=== PATIENT | male | born 1940 | race Caucasian/White ===

== ENCOUNTER 2017-04-30 12:23 | Observation (INO) | payer MEDICARE ==
[~2017-04-30] VITALS: Ht 182.9 cm; Wt 75.0 kg
[2017-04-30] VITALS (8 sets, daily range): BP systolic 102–159; BP diastolic 62–85; PULSE 63–87; RESP 15–20; TEMP 95.7–98.5; O2SAT 95–100
[~2017-04-30 12:23] MED LIST: AMLO2.5T PO; ATOR20TA42 PO; LISI-360 PO; METO50TA PO; NAPR220T95 PO; PROS5TAB2 PO; TAMS0.4C67 PO; TIZA4CAP PO
[2017-04-30] MEDS ORDERED: AMLO2.5T PO (13:00)
[2017-04-30] MEDS ORDERED: LISI10TA3 PO (13:00)
[2017-04-30] MEDS ORDERED: TIZA4TAB PO (13:00)
[2017-04-30] MEDS ORDERED: METO50TA PO (13:00)
[2017-04-30] MEDS ORDERED: PROS5TAB PO (13:00)
[2017-04-30] MEDS ORDERED: TAMS5CAP PO (13:00)
[2017-04-30] MEDS ORDERED: LIPI40TA PO (13:00)
[2017-04-30] MEDS ORDERED: ALEV220T14 PO (13:00)
[2017-04-30 13:14] LABS: AUTOMATED NEUTROPHIL # 3.8 TH/MM3 (1.8-7.7); BASOPHIL % 0.4 % (0.0-2.0); EOSINOPHIL % 0.3 % (0.0-4.0); HEMATOCRIT 38.7 % (39.0-51.0); HEMO FLAGS DIFF FINAL; LYMPH % 34.9 % (9.0-44.0); LYMPHOCYTE # 2.4 TH/MM3 (1.0-4.8); MEAN CELL VOLUME 93.5 FL (80.0-100.0); MEAN CORPUSCULAR HEMOGLOBIN 32.2 PG (27.0-34.0); MEAN CORPUSCULAR HGB CONC 34.4 % (32.0-36.0); MONO % 9.7 % (0.0-8.0); NEUT % 54.7 % (16.0-70.0); PLATELET COUNT 141 TH/MM3 (150-450); RED BLOOD COUNT 4.14 MIL/MM3 (4.50-5.90); RED CELL DISTRIBUTION WIDTH 13.1 % (11.6-17.2); WHITE BLOOD COUNT 6.9 TH/MM3 (4.0-11.0)
[2017-04-30] MEDS ORDERED: SODIUM CHLORIDE 0.9% FLUSH 10 ML FLUSH IVF PRN (13:15)
[2017-04-30] MEDS ORDERED: ASPIRIN 325 MG TAB PO ONE (13:15)
--- NOTE | 2017-04-30 13:18 | PD ---
HPI Chief Complaint: Chest Pain Time Seen by Provider: 12:51 Travel History International Travel<30 days: No Contact w/Intl Traveler<30days: No Traveled to known affect area: No History of Present Illness HPI Patient's 76 years old. He arrives with a retrosternal chest heaviness. It started today while he was golfing. Yesterday he spent 4 hours outside pressure washing. That's an unusually high amount of physical exertion for the patient. At the time of ER evaluation he is a very vague retrosternal chest discomfort reports quite minimal. He has no shortness of breath. In 2006 the patient underwent quintuple bypass surgery. The patient has hypertension. Patient has hyperlipidemia as well. He follows with Dr. Penaloza who performed an echocardiogram a few months ago which revealed a decrease in overall ejection fraction. PFSH Past Medical History Arthritis: Yes (NECK) Asthma: No Atrial Fibrillation: Yes (PAROXYSMAL) Blood Disorders: No Heart Rhythm Problems: Yes (AFIB) Cancer: No Cardiovascular Problems: Yes (CAD/ cabg) High Cholesterol: Yes Chest Pain: No Congestive Heart Failure: No COPD: No Cerebrovascular Accident: No Diabetes: No Diminished Hearing: No Endocrine: No Gastrointestinal Disorders: Yes (HX OF GI BLEED, HERNIA REPAIR ) GERD: No Genitourinary: Yes Headaches: No Hiatal Hernia: No Hypertension: Yes Immune Disorder: No Kidney Stones: No Medical other: Yes (HYPERCHOLESTEROLEMIA,ATROPHY MUSCLES IN UPPER ARM/SHOULDER, ) Musculoskeletal: Yes (WEAKNESS MICHELLE ARMS WEAKNESS. RT>LT. LOWER SPINE ? HERNIATED DISC) Neurologic: Yes (MULTIPLE FAINTING EPISODES) Psychiatric: No Reproductive: No Respiratory: No Migraines: No Renal Failure: No Seizures: No Sleep Apnea: No Thyroid Disease: No Ulcer: No Tetanus Vaccination: > 5 Years Influenza Vaccination: Yes Past Surgical History Abdominal Surgery: Yes (APPENDECTOMY 2006) AICD: No Appendectomy: Yes Arteriovenous Shunt: No Body Medical Devices: PLASTIC HEART VALVE. ? MONITORING DEVICE IMPLANTED UNDER LT COLLARBONE Cardiac Surgery: Yes ( CABG X5,VALVE REPLACED) Coronary Artery Bypass Graft: Yes (X 5; VALVE, 2006) Ear Surgery: No Endocrine Surgery: No Eye Surgery: No Genitourinary Surgery: No Gynecologic Surgery: No Insulin Pump: No Joint Replacement: No Oral Surgery: No Pacemaker: No Thoracic Surgery: No Other Surgery: Yes (MITRAL VALVE ANNULOPLASTY) Social History Alcohol Use: Yes (4 GLASSES OF WINE A DAY) Tobacco Use: No Substance Use: No Allergies-Medications (Allergen,Severity, Reaction): Coded Allergies: No Known Allergies (Verified , 04/30/17) Reported Meds & Prescriptions Reported Meds & Active Scripts Active Reported Flomax (Tamsulosin HCl) 0.4 Mg Cap 0.4 Mg PO HS Tizanidine (Tizanidine HCl) 4 Mg Tab 4 Mg PO TID Aleve Arthritis (Naproxen Sodium) 220 Mg Tab 220 Mg PO BID Metoprolol Tartrate 50 Mg Tab 50 Mg PO BID Lisinopril 10 Mg Tab 10 Mg PO DAILY Proscar (Finasteride) 5 Mg Tab 5 Mg PO DAILY Do not crush. Lipitor (Atorvastatin Calcium) 40 Mg Tab 40 Mg PO HS Amlodipine (Amlodipine Besylate) 2.5 Mg Tab 2.5 Mg PO DAILY Review of Systems Except as stated in HPI: all other systems reviewed are Neg Physical Exam Narrative GENERAL: 76 yo M, WNWD, NAD SKIN: Warm and dry. HEAD: Atraumatic. Normocephalic. EYES: Pupils equal and round. No scleral icterus. No injection or drainage. ENT: No nasal bleeding or discharge. Mucous membranes pink and moist. NECK: Trachea midline. No JVD. CARDIOVASCULAR: Regular rate. Regular rhythm. RESPIRATORY: No accessory muscle use. Clear to auscultation. Breath sounds equal bilaterally. GASTROINTESTINAL: Abdomen soft, non-tender, nondistended. Hepatic and splenic margins not palpable. MUSCULOSKELETAL: Extremities without clubbing, cyanosis, or edema. No obvious deformities. NEUROLOGICAL: Awake and alert. No obvious cranial nerve deficits. Motor grossly within normal limits. Five out of 5 muscle strength in the arms and legs. Normal speech. PSYCHIATRIC: Appropriate mood and affect; insight and judgment normal. Data Data Last Documented VS Vital Signs Date Time Temp Pulse Resp B/P Pulse Ox O2 Delivery O2 Flow Rate FiO2 04/30/17 14:38 68 16 142/78 98 Room Air 04/30/17 12:52 98.5 VS reviewed Orders Electrocardiogram (04/30/17 13:02) Basic Metabolic Panel (Bmp) (04/30/17 13:02) Ckmb (Isoenzyme) Profile (04/30/17 13:02) Complete Blood Count With Diff (04/30/17 13:02) Magnesium (Mg) (04/30/17 13:02) Prothrombin Time / Inr (Pt) (04/30/17 13:02) Act Partial Throm Time (Ptt) (04/30/17 13:02) Troponin I (04/30/17 13:02) Chest, Single Ap (04/30/17 13:02) Ecg Monitoring (04/30/17 13:02) Bilateral Bp Monitoring (04/30/17 13:02) Iv Access Insert/Monitor (04/30/17 13:02) Oximetry (04/30/17 13:02) Oxygen Administration (04/30/17 13:02) Aspirin (Aspirin) (04/30/17 13:15) Sodium Chloride 0.9% Flush (Ns Flush) (04/30/17 13:15) CKMB (04/30/17 13:05) CKMB% (04/30/17 13:05) Consult Cardiology (04/30/17 ) Admit Order (Ed Use Only) (04/30/17 14:37) Labs Laboratory Tests Test 04/30/17 13:05 White Blood Count 6.9 TH/MM3 Red Blood Count 4.14 MIL/MM3 Hemoglobin 13.3 GM/DL Hematocrit 38.7 % Mean Corpuscular Volume 93.5 FL Mean Corpuscular Hemoglobin 32.2 PG Mean Corpuscular Hemoglobin 34.4 % Concent Red Cell Distribution Width 13.1 % Platelet Count 141 TH/MM3 Mean Platelet Volume 9.0 FL Neutrophils (%) (Auto) 54.7 % Lymphocytes (%) (Auto) 34.9 % Monocytes (%) (Auto) 9.7 % Eosinophils (%) (Auto) 0.3 % Basophils (%) (Auto) 0.4 % Neutrophils # (Auto) 3.8 TH/MM3 Lymphocytes # (Auto) 2.4 TH/MM3 Monocytes # (Auto) 0.7 TH/MM3 Eosinophils # (Auto) 0.0 TH/MM3 Basophils # (Auto) 0.0 TH/MM3 CBC Comment DIFF FINAL Differential Comment Prothrombin Time 10.7 SEC Prothromb Time International 1.0 RATIO Ratio Activated Partial 28.0 SEC Thromboplast Time Sodium Level 140 MEQ/L Potassium Level 4.6 MEQ/L Chloride Level 102 MEQ/L Carbon Dioxide Level 28.5 MEQ/L Anion Gap 10 MEQ/L Blood Urea Nitrogen 35 MG/DL Creatinine 1.50 MG/DL Estimat Glomerular Filtration 46 ML/MIN Rate Random Glucose 93 MG/DL Calcium Level 9.9 MG/DL Magnesium Level 2.0 MG/DL Total Creatine Kinase 339 U/L Creatine Kinase MB 5.6 NG/ML Creatine Kinase MB % 1.7 % Troponin I LESS THAN 0.02 NG/ML MDM Medical Decision Making Medical Screen Exam Complete: Yes Emergency Medical Condition: Yes Medical Record Reviewed: Yes Differential Diagnosis NSTEMI, unstable angina, coronary vasospasm, PE, PTX, aortic dissection, pericarditis, myocarditis, endocarditis, PNA, esophageal disease, aneurysm, musculoskeletal etiologies, anxiety, cocaine/sympathomimetic abuse Narrative Course EKG reveals a sinus rhythm with a rate of 63 and a left bundle branch block type pattern generally unchanged and gross morphology in comparison to 2013 Last 24 hours Impressions Chest X-Ray 04/30/17 1302 Signed Impressions: Service Date/Time: , April 30, 2017 13:14 - CONCLUSION: 1. Post surgical changes. No acute cardiopulmonary findings. Raji Franco MD CBC & BMP Diagram 04/30/17 13:05 Troponin less than 0.02 Case was discussed with Dr. Webb who requests hospitalist admission with a consult to Dr. Penaloza. Case d/w Dr Salguero who requests admission under Dr Olson. Patient agreeable with plan for admission. Diagnosis Primary Impression: Chest pain Qualified Code: R07.9 - Chest pain, unspecified type Admitting Information Admitting Physician Requests: Observation Raji Adams MD Apr 30, 2017 13:18 Raji Adams MD Apr 30, 2017 13:18
[2017-04-30 13:23] LABS: CHLORIDE 102 MEQ/L (98-107); POTASSIUM 4.6 MEQ/L (3.5-5.1); SODIUM (NA) 140 MEQ/L (136-145)
[2017-04-30 13:27] LABS: ANION GAP 10 MEQ/L (5-15); BICARBONATE 28.5 MEQ/L (21.0-32.0); BLOOD UREA NITROGEN 35 MG/DL (7-18)
[2017-04-30 13:30] LABS: GLOMERULAR FILTRATION RATE 46 ML/MIN (>89)
[2017-04-30 13:31] LABS: PROTHROMBIN TIME - PATIENT 10.7 SEC (9.8-11.6)
[2017-04-30 13:33] LABS: CREATINE KINASE 339 U/L (39-308)
[2017-04-30 13:46] LABS: CKMB 5.6 NG/ML (0.5-3.6)
--- NOTE | 2017-04-30 13:57 | RADRPT ---
EXAM DATE/TIME: 04/30/2017 13:14 [facility] COMPARISON: CHEST SINGLE AP, December 19, 2011, 10:58. INDICATIONS : Chest tightness, short of breath, dizziness. MEDICAL HISTORY : Cardiovascular disease. SURGICAL HISTORY : CABG. ENCOUNTER: Initial ACUITY: 1 day PAIN SCORE: 1/10 LOCATION: Bilateral chest FINDINGS: The patient is post median sternotomy and valvular replacement. The heart is at the upper limits of n ormal in size. The lungs are clear. There degenerative changes in the shoulders bilaterally. The study is relatively unchanged compared to previous dated 12/19/11. CONCLUSION: 1. Post surgical changes. No acute cardiopulmonary findings. Rjai Franco MD on April 30, 2017 at 13:55 Board Certified Radiologist. This report was verified electronically.
[2017-04-30] MEDS ORDERED: SODIUM CHLORID 0.9% 500 ML INJ 500 ML IV ONE (15:15)
[2017-04-30] MEDS ORDERED: BISACODYL 10 MG SUPP RECTAL PRN (17:00)
[2017-04-30] MEDS ORDERED: NALOXONE HCL 0.4 MG/ML AMP IV PRN (17:00)
[2017-04-30] MEDS ORDERED: SENNOSIDES 8.6 MG TAB PO PRN (17:00)
[2017-04-30] MEDS ORDERED: SODIUM CHLORIDE 0.9% FLUSH 10 ML FLUSH IV FLUSH PRN (17:00)
[2017-04-30] MEDS ORDERED: ONDANSETRON HCL 4 MG/2 ML VIAL IVP PRN (17:00)
[2017-04-30] MEDS ORDERED: LACTULOSE SYRUP 20 GM/30 ML CUP PO PRN (17:00)
[2017-04-30] MEDS ORDERED: ACETAMINOPHEN/HYDROcodone 325 MG/5 MG TAB PO PRN (17:00)
[2017-04-30] MEDS ORDERED: MAGNESIUM HYDROXIDE SUSP 30 ML CUP PO PRN (17:00)
[2017-04-30] MEDS ORDERED: PILL SPLITTER OTHER PRN (17:00)
[2017-04-30 17:29] LABS: CREATINE KINASE 289 U/L (39-308)
[2017-04-30] MEDS: HEPARIN SODIUM - SQ 10,000 UNITS/ML VIAL SQ SCH (18:33)
[2017-04-30] MEDS: METOPROLOL TARTRATE 50 MG TAB PO SCH (20:50)
[2017-04-30] MEDS: DOCUSATE SODIUM 50 MG/SENNA 8.6 MG TAB PO SCH (20:50)
[2017-04-30] MEDS: SODIUM CHLORIDE 0.9% FLUSH 10 ML FLUSH IV FLUSH SCH (21:00)
[2017-04-30] MEDS ORDERED: ATORVASTATIN 40 MG TAB PO SCH (21:00)
[2017-04-30] MEDS ORDERED: TAMSULOSIN HCL 0.4 MG CAP PO SCH (21:00)
[2017-05-01] MEDS ORDERED: cloNIDine HCL 0.1 MG TAB PO PRN (03:00)
[2017-05-01] MEDS: HEPARIN SODIUM - SQ 10,000 UNITS/ML VIAL SQ SCH ×2 (05:37→18:00)
[2017-05-01 08:00] VITALS: BP 152/83; PULSE 56; RESP 16; TEMP 97.2; O2SAT 100
[2017-05-01] MEDS ORDERED: amLODIPine BESYLATE 5 MG TAB PO SCH (09:00)
[2017-05-01] MEDS ORDERED: LISINOPRIL 10 MG TAB PO SCH (09:00)
[2017-05-01] MEDS ORDERED: FINASTERIDE 5 MG TAB PO SCH (09:00)
[2017-05-01] MEDS: SODIUM CHLORIDE 0.9% FLUSH 10 ML FLUSH IV FLUSH SCH (09:00)
[2017-05-01] MEDS: METOPROLOL TARTRATE 50 MG TAB PO SCH (09:32)
[2017-05-01] MEDS: DOCUSATE SODIUM 50 MG/SENNA 8.6 MG TAB PO SCH (09:32)
[2017-05-01 12:00] VITALS: BP 118/70; PULSE 52; RESP 18; TEMP 97; O2SAT 99
[2017-05-01 16:00] VITALS: BP 148/78; PULSE 54; RESP 18; TEMP 97.6; O2SAT 99
--- NOTE | 2017-05-01 17:56 | MH ---
cc: KERRI PRICE MD DATE OF ADMISSION 04/30/2017 CHIEF COMPLAINT Chest pain. HISTORY OF PRESENT ILLNESS This is a 76-year-old male with a past medical-surgical history significant for atrial fibrillation, history of arthritis, history of coronary artery disease status post CABG five-vessel, hyperlipidemia, history of GI bleed in the past and hernia repair, history of atrophy of the muscles in the upper arm and shoulder, history of appendectomy, history of ? monitoring device implanted under the left collarbone and a valve placement, appendectomy, valve surgery done in 2006. Complaining of chest pain which is retrosternal heaviness and started yesterday while he was golfing and has spent 4-hour outside he usually has a amount of physical exertion and at the time of the ER evaluation he ____ retrosternal chest discomfort and quite minimal and had no shortness of breath. In 2006 he had five-vessel bypass surgery. He sees Dr. Penaloza as an outpatient which he had an echo done a few months ago which revealed a decrease in overall ejection fraction, other than that nothing significant. When I examined the patient the patient denies any chest pain and the patient also refusing blood draw. The risk, benefit, alternatives explained to the patient including . He verbalized understanding and still refused it and also discussed with __ about refusal of blood draw. PAST MEDICAL-SURGICAL HISTORY As dictated above. SOCIAL HISTORY Drinks four glasses of wine on a daily basis. Denies any smoking or drug abuse. Lives at home with . He is retired [employer] worker. ALLERGIES NO KNOWN DRUG ALLERGIES. FAMILY HISTORY Significant for dad of heart attack at the age of 37. Brother of heart attack at the age of 35 and uncle also because of heart attack. MEDICATIONS Include: 1. Flomax 0.4 milligrams p.o. h.s. 2. Tizanidine 4 milligrams p.o. t.i.d. 3. Aleve arthritis 220 milligrams twice a day. 4. Metoprolol 50 milligrams twice a day. 5. Lisinopril 10 milligrams daily. 6. Proscar 5 milligrams p.o. daily. 7. Lipitor 40 milligrams p.o. at bedtime. 8. Amlodipine 2.5 milligrams p.o. daily. REVIEW OF SYSTEMS All review of systems are negative at the time of examination. PHYSICAL EXAMINATION GENERAL: This is a 76-year-old male sitting on the bed, not in any acute distress. VITAL SIGNS: Temperature 97.0, heart rate 52, respirations 18, blood pressure 118/70, O2 saturation 99% at room air. HEENT: Normocephalic, atraumatic. EOMI. PERRL. Oral mucosa moist. NECK: Supple. No visible thyromegaly or neck mass. Trachea central. CVS: Regular rate and rhythm. LUNGS: Respirations clear to auscultation bilaterally. ABDOMEN: Soft, nontender. Bowel sounds audible. EXTREMITIES: No cyanosis or clubbing. Full range of motion of all extremities. NEURO: Awake, alert, oriented x4. No focal deficits. SKIN: Warm and dry. PSYCH: The patient is cooperative. Mood, affect are normal. LABORATORY DATA Include CBC totally unremarkable except for RBC count 4.14 low, hemoglobin 13.3, hematocrit 38.7 low. BMP totally unremarkable except for BUN 35 high, creatinine 1.50 high, creatine 339 high, CPK MB 5.6. Troponin-I less than 0.02 x2. PT 10.7, INR 1.0, APTT 28.0. IMAGING STUDIES Chest x-ray was done shows postsurgical changes. No acute cardiopulmonary finding. CARDIOLOGY STUDIES EKG done shows sinus rhythm with rate of 63, moderate interventricular conduction delay, borderline EKG. ASSESSMENT/PLAN 1. This is a 77-year-old male who came to the ER diagnosed with chest pain, rule out acute coronary syndrome. Cardiac enzymes x2 0.02. Cardiology consulted. Started on aspirin 325 milligrams p.o. daily. Further recommendation per ___. 2. History of coronary artery disease continue the home medication. Will monitor blood pressure. 3. History of BPH. Continue home medication. 4. History of hypertension. Continue home medication. Monitor blood pressure. 5. History of paroxysmal atrial fibrillation. Continue home medications. 6. History of hyperlipidemia. Continue Lipitor 40 milligrams p.o. daily. 7. DVT prophylaxis, heparin 5000 units subcutaneous twice a day. 8. GI prophylaxis, Protonix 40 milligrams p.o. daily. 9. We are going to manage the patient on a daily basis and make recommendations on a daily basis. MD NORMAN Arrington /5:22 PM /5:40 PM
[2017-05-01] MEDS ORDERED: PANTOPRAZOLE SOD 40 MG DELAYED RELEASE TAB PO SCH (18:00)
--- NOTE | 2017-05-01 20:53 | MB ---
cc: SHANELL CARO M.D. DATE OF CONSULTATION 05/01/17 HISTORY OF PRESENT ILLNESS Thank you Dr. Srinath Olson for asking us to see this very pleasant gentleman who presented yesterday with chest discomfort. He had power washed the previous day also yesterday and then also played golf and then had some very mild chest tightness and also dizziness. He had a bypass surgery in 2004. He has had a loop recorder insertion in 2011 and removal in 2014. PAST HISTORY Positive ASHD status post bypass surgery times 5 on 07/10/2006. Mitral repaired 2005 with a [place] annuloplasty ring. He also has a history of syncope, hypertension, hyperlipidemia, pulmonary embolism, alcohol abuse in the past hernia surgery, knee surgery which is remote. SOCIAL HISTORY Nonsmoker. Moderate alcohol. No drugs. ALLERGIES None. MEDICATIONS Include: 1. Protonix. 2. Amlodipine. 3. Lisinopril. 4. Clonidine. 5. Lipitor. 6. Metoprolol. 7. Flomax. 8. Heparin subcutaneous 9. Zanaflex. 10. Naloxone. 11. Lactulose. PHYSICAL EXAMINATION GENERAL: On examination pulse 72, blood pressure 148/78, respirations 18. HEENT: Eyes showed no xanthelasma. Mouth showed no cyanosis or pallor. NECK: Showed JVD. HEART: He had two heart sounds. No murmurs. CHEST: Clear. ABDOMEN: Soft. No hepatosplenomegaly. EXTREMITIES: Legs reveal no evidence of edema. NEUROLOGIC: Examination grossly intact. LABORATORY DATA White count 6.9, hemoglobin 13.3, hematocrit 38.7, sodium 140, potassium 4.6, BUN 35, creatinine 1.5. Troponin less than 0.02 x2. CARDIOLOGY STUDIES EKG showed normal sinus rhythm. ASSESSMENT/PLAN This patient has been ruled out for myocardial infarction. Will plan to do nuclear stress test as an outpatient given his underlying coronary artery disease. At this point his chest pains appear to be possibly related to his extreme exertion, on the basis of nuclear stress test will make a decision. At this point he can be discharged. I will follow up with him next week. He is to return to the hospital if he has any further problems. Thank you Dr. Olson for asking us to see this very pleasant gentleman. VIRGINIA Martinez MD,JONN HAJ/SHELLIE /7:30 PM /8:31 PM [facility] NETWORKOmer
--- NOTE | 2017-05-02 11:14 | EKG ---
Date Performed: 04/30/2017 Time Performed: 12:28:45 PTAGE: 76 years EKG: Sinus rhythm MODERATE INTRAVENTRICULAR CONDUCTION DELAY BORDERLINE ECG INTERPRETATION BASED ON A DEFAULT AGE OF 4 0 YEARS NO PREVIOUS TRACING DOCTOR: Aaron Garcia Interpretating Date/Time 05/02/2017 11:07:05
== END 2017-05-01 19:30 | disposition home or self-care (01) ==
LOC: PHED 12:23 → PHEDA 14:38 → PH3A 16:15
PROVIDERS: ADMIT Family Medicine; ATTEND Family Medicine
DX: R07.89 Other chest pain (principal); R06.02 Shortness of breath; R42 Dizziness and giddiness; E78.00 Pure hypercholesterolemia, unspecified; I44.7 Left bundle-branch block, unspecified; I25.10 Atherosclerotic heart disease of native coronary artery without angina pectoris; I10 Essential (primary) hypertension; I48.0 Paroxysmal atrial fibrillation; E78.5 Hyperlipidemia, unspecified; N40.0 Benign prostatic hyperplasia without lower urinary tract symptoms; M19.90 Unspecified osteoarthritis, unspecified site; Z95.1 Presence of aortocoronary bypass graft; Z79.899 Other long term (current) drug therapy; Z86.711 Personal history of pulmonary embolism
CPT/HCPCS: 71010; 80048; 82550; 82552; 83735; 84484; 85025; 85610; 85730; 93005; 99285; G0378; J1644; J7040

== ENCOUNTER 2017-05-29 10:17 | Day surgery (SDC) | payer MEDICARE ==
[~2017-05-29] VITALS: Ht 182.9 cm; Wt 74.5 kg
[~2017-05-29 10:17] MED LIST changes: +ALEV220T14 PO; -ATOR20TA42 PO; +LIPI40TA PO; -LISI-360 PO; +LISI10TA3 PO; -NAPR220T95 PO; +PROS5TAB PO; -PROS5TAB2 PO; -TAMS0.4C67 PO; +TAMS5CAP PO; -TIZA4CAP PO; +TIZA4TAB PO
[2017-05-29] MEDS ORDERED: NS 1000P @30 MLS/HR (KVO) IV SCH (11:00)
[2017-05-29 11:01] VITALS: BP 193/106; PULSE 80; RESP 17; TEMP 98.3; O2SAT 100
[2017-05-29] MEDS ORDERED: GLUC500C5 PO (11:20)
[2017-05-29] MEDS ORDERED: LISI-515 PO (11:20)
[2017-05-29] MEDS ORDERED: LIPI80TA PO (11:20)
[2017-05-29] MEDS ORDERED: AMLO5TAB2 PO (11:20)
[2017-05-29] MEDS ORDERED: METO50TA PO (11:20)
[2017-05-29] MEDS ORDERED: FINA5TAB2 PO (11:20)
[2017-05-29] MEDS ORDERED: COQ-30CA2 PO (11:20)
[2017-05-29] MEDS ORDERED: OMEG100010 PO (11:20)
[2017-05-29] MEDS ORDERED: ESSE250T PO (11:20)
[2017-05-29] MEDS ORDERED: VITA100064 PO (11:20)
[2017-05-29] MEDS ORDERED: POTA595T PO (11:20)
[2017-05-29] MEDS ORDERED: ZETI10TA5 PO (11:20)
[2017-05-29] MEDS ORDERED: BETA1TAB5 PO (11:21)
[2017-05-29 11:28] LABS: AUTOMATED NEUTROPHIL # 2.2 TH/MM3 (1.8-7.7); BASOPHIL % 0.7 % (0.0-2.0); EOSINOPHIL % 0.2 % (0.0-4.0); HEMATOCRIT 39.9 % (39.0-51.0); HEMO FLAGS DIFF FINAL; LYMPH % 45.7 % (9.0-44.0); LYMPHOCYTE # 2.3 TH/MM3 (1.0-4.8); MEAN CELL VOLUME 93.5 FL (80.0-100.0); MEAN CORPUSCULAR HEMOGLOBIN 32.6 PG (27.0-34.0); MEAN CORPUSCULAR HGB CONC 34.9 % (32.0-36.0); MONO % 10.1 % (0.0-8.0); NEUT % 43.3 % (16.0-70.0); PLATELET COUNT 149 TH/MM3 (150-450); RED BLOOD COUNT 4.27 MIL/MM3 (4.50-5.90); RED CELL DISTRIBUTION WIDTH 13.6 % (11.6-17.2); WHITE BLOOD COUNT 5.1 TH/MM3 (4.0-11.0)
[2017-05-29 11:37] LABS: APTT (PATIENT) 28.2 SEC (24.3-30.1); PROTHROMBIN TIME - PATIENT 10.8 SEC (9.8-11.6)
[2017-05-29 11:45] LABS: BICARBONATE 29.5 MEQ/L (21.0-32.0); POTASSIUM 3.9 MEQ/L (3.5-5.1)
[2017-05-29] MEDS ORDERED: HEPARIN-NS/PF INJ 500 ML ONE (12:35)
[2017-05-29] MEDS ORDERED: MIDAZOLAM HCL 2 MG/2 ML VIAL ONE ×2 (12:53→13:07)
[2017-05-29] MEDS ORDERED: IOHEXOL 350 MG/ML 50 ML BTL (for Cath Lab) OTHER ONE (13:00)
[2017-05-29] MEDS ORDERED: IOHEXOL 350 MG/ML 100 ML BTL (for Cath Lab) OTHER ONE (13:00)
--- NOTE | 2017-05-29 15:52 | CATHPROC ---
[employer] HIS Report Study Information Study Number Admission Scheduled Start Study Start [id number] May 29 2017 10:17AM 05/29/2017 May 29 2017 12:19PM [place] Service Cardiac Catheterization Admit Source Facility Department Other [facility] - [facility] Physician and Clinical Staff Initial Georges Dang Burnisherstephanie King RN, Wolf BurnisherAlejandra Pedersen RN Other cathlab, cathlab Recorder Vinod Landry RCIS(BS) Scrub Nikki Alvarado,GRAPHICS EDITOR TECH2 Procedures Performed Procedure Location (Site) Vessel Name Coronary Angiograms LCA Left Coronary Coronary Angiograms RCA Right Coronary Coronary Angiograms HSU-LAD Left Coronary Coronary Angiograms SVG-DIAG Left Coronary Coronary Angiograms SVG-OM CIRC Coronary Angiograms SVG-RCA Right Coronary Equipment Time Clinical Consultant Description Size Mfg Part Number Used/Scraped [id number] 12:19 CRUZ GONSALVES SWAN DORA CATHETER FR 7 Used *[id number] TRANSDUCER, TRUWAVE [id number] 12:19 CRZU GONSALVES * Used W/STOCKCOCK *[id number] TRANSDUCER, TRUWAVE [id number] 12:19 CRUZ GONSALVES * Used W/STOCKCOCK *[id number] MPIS-502-10.0- INTRODUCER SET, 12:19 [employer] FR 5 SC-NT-U-SST Used MICROPUNCTURE, STIFFENED *[id number] 538-476 *[id number] [phone] *[id number] 538-460 *[id number] 538-420 *[id number] 538-422 *[id number] 538-442 *[id number] 538-453S *[id number] WIRE, HYDROSTEER 150CM [id number] 13:44 DAIG/ST. [employer]ES[employer] MED[employer] 150CM Used STRAIGHT GLIDE *[id number] INTRODUCER SET, 12:19 [employer] * [id number] Used MICROPUNCTURE [id number] 12:19 [employer] INDUSTRIES PACK, CCL CUSTOM * Used *[id number] 12:19 [employer] PACER PEN, SKIN DUAL W/ RULER * Used *[id number] 12:19 [employer] MEDICAL WIRE, 3MMJ .035 180CM 180CM Used *[id number] PROBE COVER, STERILE [id number] 12:19 [employer] * Used ULTRASOUND W/ GEL *[id number] [id number] 12:19 NAMIC MANIFOLD, 2 PORT * Used *[id number] 12:19 NAMIC MANIFOLD, 4 PORT * Used *[id number] 12:19 [employer] OMNIPAQUE, 350 MG, 150ML 150ML [id number] Used [id number] 12:19 [employer] BLANKET,WARM AIR CCL * Used *[id number] 12:19 TERUMO MEDICAL SHEATH, FR4 TERUMO (10CM) FR 4 Used *[id number] [id number] 12:19 [employer] MEDICAL SHEATH, FR7 TERUMO (10CM) FR 7 Used *[id number] History: Current Medications Medication Dosage/Unit Route Frequency Last Date/Time Taken Beta Bobby Statins (any) History: Allergies Allergy Reaction No Known Allergies History: Risk Factors Family History of Hypertension Dyslipidemia Previous TX Previous Heart Failure Premature CAD Yes Yes Yes No No Prior Valve Prior PCI Prior CABG Prior CABGDate Surgery No No Yes 07/10/2016 Cerebrovascular Peripheral Artery Chronic Lung On Dialysis Diabetes Disease Disease Disease No No No No No History: Symptoms/Diagnosis Selection Items Chest pain History: Stress Tests Stress or Imaging Studies Performed Yes Standard Exercise Stress Test No Stress Echo No Stress Test SPECT Stress Test SPECT Result Stress Test SPECT Ischemia Risk/Extent Yes Positive Unavailable Stress Test CMR No Cardiac CTA Coronary Calcium Score No No History: Other Disease Selection Items HTN History: TX/CV Data Previous CABG Date 07/10/2006 History: Other Current Smoker No Labs Hgb (g/dl) Hct (%) WBC (l/cumm) Platelets (thousands) 11.60-17.00 35.00-51.00 4.00-11.00 150.00-450.00 13.9 39.9 5.1 149 Glucose (mg/dl) BUN (mg/dl) Creatinine (mg/dl) BUN:Creatinine (1:x) 74.00-106.00 7.00-18.00 0.50-1.30 10.00-20.00 80 25 0.8 31.3 Na (meq/l) K (meq/l) 136.00-145.00 3.50-5.10 141 3.9 INR (PTT:PT) 0.90-1.10 1 CPK-MB (ng/ML) 0.50-3.60 Not Drawn Medication Medication Total Dose (Bolus/Oral) Medication Total Dosage/Unit 1% XYLOCAINE 20 mL FENTANYL 100 mcg VERSED 4.5 mg Medications (Bolus/Oral) Medication Time Given Dosage/Unit Administered By Reason FENTANYL 05/29/2017 1:01:54 PM 50 mcg Silvino, Alejandra 50 mcg FENTANYL given in lab by Alejandra Dubois RN in Left Antecubital via Peripheral IV. Ordered by Georges Penaloza. VERSED 05/29/2017 1:02:12 PM 2 mg Silvino, Alejandra 2 mg VERSED given in lab by Alejandra Dubois RN in Left Antecubital via Peripheral IV. Ordered by Georges Soler. VERSED 05/29/2017 1:02:45 PM 0.5 mg Marlow, Alejandra 0.5 mg VERSED given in lab by Alejandra Dubois RN in Left Antecubital via Peripheral IV. Ordered by Georges Bernal. 1% XYLOCAINE 05/29/2017 1:05:22 PM 20 mL Georges Penaloza 20 mL 1% XYLOCAINE given in lab by Georges Penaloza in Right Groin via Subcutaneous. VERSED 05/29/2017 1:16:02 PM 2 mg Marlow, Alejandra 2 mg VERSED given in lab by Alejandra Dubois RN in Left Antecubital via Peripheral IV. Ordered by Georges Soler. FENTANYL 05/29/2017 1:20:02 PM 50 mcg Silvino, Alejandra 50 mcg FENTANYL given in lab by Alejandra Dubois RN in Left Antecubital via Peripheral IV. Ordered by Georges Penaloza. Medication (Drip) Medication Time Given Dosage/Unit Concentration/Unit Diluent (ml) Solutio n IV Solutions 05/29/2017 12:32:15 PM 0 mL (IV) 500 NaCl .9 Patient arrived on IV Solutions given by cathlab, cathlab in Left Antecubital via Peripheral IV. Pump /Drip Flow = 20 ml/hr using NaCl .9. Ordered by Georges Penaloza. Initial Case Assessment Cardiovascular HR Rhythm NIBP Chest Pain 86 sinus 176/100 0 Edema Present Skin color Skin None Normal Warm Dry Circulatory - Right Pulses Dorsalis Pedis Femoral 1 3 Scale (0,1,2,3,4,d) Circulatory - Left Pulses Dorsalis Pedis Femoral 1 3 Scale (0,1,2,3,4,d) Neurological State Oriented to time-place- Alert Moves all extremities person Respiration - General Respiration Rate SpO2 (%) (B/min) 15 100 Final Case Assessment Cardiovascular HR Rhythm NIBP Chest Pain 74 sinus 137/81 0 Edema Present Skin color Skin None Normal Warm Dry Circulatory - Right Pulses Dorsalis Pedis Femoral 1 3 Scale (0,1,2,3,4,d) Circulatory - Left Pulses Dorsalis Pedis Femoral 1 3 Scale (0,1,2,3,4,d) Neurological State Oriented to time-place- Alert Moves all extremities person Respiration - General Respiration Rate SpO2 (%) (B/min) 15 100 Chronological Log Time Study Chronological Log 12:32:06 Patient arrived via Bed. 12:32:07 Patient Name, D.O.B, / Armband Verified By R.N. 12:32:08 Consent signed by the physician and the patient and verified by the [facility] staff. 12:32:08 Pre-op and post- op instructions given; patient acknowledges understanding of instructions. 12:32:08 Verbal Stimulation=2 Physical Stimulation=2 Airway=2 Respiration=2 TOTAL=8. (0=absent, 1=li mited, 2=present) 12:32:09 Presedation assessment performed by [facility] RN. 12:32:11 Immediate Presedation assesment performed by physician. 12:32:11 Patient has been NPO for More than 6Hrs. 12:32:12 Skin Breakdown- none per patient 12:32:12 Patient Warmer Placed on the Table. 12:32:13 Tony Prominences Protected 12:32:15 A # 20 IV was noted in the Antecubital (left). Grade = 0 Patient arrived on IV Solutions given by cathlab, cathlab in Left Antecubital via Peripheral IV . Pump/Drip Flow = 20 12:32:15 ml/hr using NaCl .9. Ordered by Georges Penaloza. 12:32:16 History and physical on the chart or being dictated. Vitals capture started with the following parameters, Patient=Adult, Interval=5 min, Initial Pr zemonl=047 mmHg, 12:38:26 Deflation Rate=5 mmHg, Cuff placed on Right Arm Assessment: Initial Case, HR=86 BPM, Rhythm=sinus, KWVS=432/100 mmhg, Chest Pain=0, Edema=None, Color=Normal, Skin = Warm, Dry Right Pulses: Wallace Ped=1, Femoral=3 12:40:36 Left Pulses: Wallace Ped=1, Femoral=3 Neurological: State=Alert, Ox3, ATKINS Respiration: Resp=15 B/min, QmM8=258 % Vitals capture started with the following parameters, Patient=Adult, Interval=5 min, Initial Pr lbbpwx=553 mmHg, 12:41:12 Deflation Rate=5 mmHg, Cuff placed on Right Arm 12:41:35 Reference ECG taken 12:42:29 HR=83 bpm, DQBB=003/100 mmhg, SpO2=99.0 %, Resp=20 B/min, Pain=0, Mami=10, Turcios=2 12:46:56 HR=82 bpm, OJJQ=047/96 mmhg, SpO2=99.0 %, Resp=16 B/min, Pain=0, Mami=10, Turcios=2 12:49:12 Bilateral groins prepped with 2% chlorhexidine, and with a 3 min. waiting time. 12:49:14 MD paged 12:51:57 HR=84 bpm, SPNJ=171/107 mmhg, SpO2=99.0 %, Resp=15 B/min, Pain=0, Mami=10, Turcios=2 12:54:20 Pressure channel 1 zeroed. 12:55:02 MD arrived. 12:55:57 Pressure channel 2 zeroed. 12:56:56 HR=92 bpm, RLIM=915/103 mmhg, SpO2=98.0 %, Resp=15 B/min, Pain=0, Mami=10, Turcios=2 50 mcg FENTANYL given in lab by Alejandra Dubois, RN in Left Antecubital via Peripheral IV. Orde red by Ca, 13:01:54 Humayun. 13:01:57 HR=81 bpm, DJZG=469/93 mmhg, SpO2=98.0 %, Resp=16 B/min, Pain=0, Mami=10, Turcios=2 13:02:12 2 mg VERSED given in lab by Alejandra Dubois, RN in Left Antecubital via Peripheral IV. Orde red by Georges Penaloza. 13:02:30 Contrast Scanned 13:02:31 Immediate Presedation assesment performed by physician. Time Out. Correct patient, correct procedure,correct physician, ,power injector not loaded with contrast with surgical 13:02:34 team present. Time Out Concurred by , individual staff in procedure 13:02:42 Case Start 13:02:43 Verbal Stimulation=2 Physical Stimulation=2 Airway=2 Respiration=2 TOTAL=8. (0=absent, 1=li mited, 2=present) 0.5 mg VERSED given in lab by Alejandra Dubois RN in Left Antecubital via Peripheral IV. Ordere d by Ca, 13:02:45 Humayun. 13:05:22 20 mL 1% XYLOCAINE given in lab by Georges Penaloza in Right Groin via Subcutaneous. 13:06:54 HR=82 bpm, JYSJ=445/90 mmhg, SpO2=93.0 %, Resp=17 B/min, Pain=0, Mami=10, Turcios=2 13:07:56 Access site was Right Femoral Artery. 13:08:00 A INTRODUCER SET, MICROPUNCTURE * was advanced into the Fem Art (right) using the Percutane ous technique. A SHEATH, FR4 TERUMO (10CM) FR 4 was exchanged in the Fem Art (right). This was necessary in or brody to 13:08:11 accomodate a larger catheter. 13:11:55 HR=73 bpm, IATQ=750/81 mmhg, SpO2=99.0 %, Resp=11 B/min, Pain=0, Mami=10, Turcios=2 13:13:05 Access site was Right Femoral Vein. 13:13:30 A INTRODUCER SET, MICROPUNCTURE * was advanced into the Fem Vein (right) using the Percutan eous technique. A SHEATH, FR7 TERUMO (10CM) FR 7 was exchanged in the Fem Vein (right). This was necessary in o rder to 13:13:35 accomodate a larger catheter. 13:14:12 A SWAN DORA CATHETER FR 7 was inserted via Fem Vein (right) Recorded Pressure: PCW, HR=76, Condition=Condition 1 13:15:30 (Pulmonary Capillary Wedge) PCW 9 Recorded Pressure: MPA, HR=79, Condition=Condition 1 13:15:53 (Main Pulmonary Artery) MPA 33/10/19 13:16:02 2 mg VERSED given in lab by Alejandra Dubois, MARIAM in Left Antecubital via Peripheral IV. Orde red by Georges Penaloza. Recorded Pressure: MPA, HR=76, Condition=Condition 1 13:16:20 (Main Pulmonary Artery) MPA 13:16:50 HR=75 bpm, BDZV=552/86 mmhg, SpO2=95.0 %, Resp=12 B/min, Pain=0, Mami=10, Turcios=2 Thermo CO: CO=6.6 l/m, HR=73 bpm, Condition=Condition 1. Used in calculation. 13:18:42 Equipment: Description and Size=SWAN DORA CATHETER FR 7, Type=Bath Probe, CC=0.579 Injectant: Temp=19.0 - 22.0 Celsius, Volume=10.0 ml Thermo CO: CO=7.3 l/m, HR=80 bpm, Condition=Condition 1. Used in calculation. 13:19:08 Equipment: Description and Size=SWAN DORA CATHETER FR 7, Type=Bath Probe, CC=0.579 Injectant: Temp=19.0 - 22.0 Celsius, Volume=10.0 ml Thermo CO: CO=6.0 l/m, HR=79 bpm, Condition=Condition 1. Used in calculation. 13:19:35 Equipment: Description and Size=SWAN DORA CATHETER FR 7, Type=Bath Probe, CC=0.579 Injectant: Temp=19.0 - 22.0 Celsius, Volume=10.0 ml 50 mcg FENTANYL given in lab by Alejandra Dubois, MARIAM in Left Antecubital via Peripheral IV. Orde red by Ca, 13:20:02 Georges. 13:20:51 Saturation: Site=PA (Pulmonary Artery) , O2=77.8 %, Hgb=13.9 gm/dl, Condition=Condition 1. Used in calculation. 13:21:14 Saturation: Site=Ao (Aorta) , O2=91 %, Hgb=13.9 gm/dl, Condition=Condition 1. Used in calcu lation. Recorded Pressure: RV, HR=77, Condition=Condition 1 13:21:44 (Right Ventricle) RV 31/-5/2 13:21:55 HR=75 bpm, HQUG=581/79 mmhg, SpO2=90.0 %, Resp=6 B/min, Pain=0, Mami=10, Turcios=2 Recorded Pressure: RA, HR=75, Condition=Condition 1 13:21:56 (Right Atrium) RA 3/2/0 13:22:15 Saturation: Site=RA (Right Atrium) , O2=72.7 %, Hgb=13.9 gm/dl, Condition=Condition 1. Used in calculation. 13:22:56 [place] Dora Catheter Removed A JL 4.0 INFINITI CATHETER FR 4 was advanced over a wire. OMNIPAQUE, 350 MG, 150ML 150ML was us ed for 13:23:00 injections. 13:25:14 Catheter was removed A JL 5.0 INFINITI CATHETER FR 4 was advanced over a wire. OMNIPAQUE, 350 MG, 150ML 150ML was us ed for 13:25:39 injections. 13:26:54 HR=72 bpm, ZBPH=791/86 mmhg, SpO2=94.0 %, Resp=15 B/min, Pain=0, Mami=10, Turcios=2 Recorded Pressure: Ao, HR=75, Condition=Condition 1 13:27:08 (Aorta) Ao 142/76/104 13:27:33 The LCA was injected and visualized at various angles. OMNIPAQUE, 350 MG, 150ML 150ML used . 13:28:05 Catheter was removed A 3DRC INFINITI CATHETER FR 4 was advanced over a wire. OMNIPAQUE, 350 MG, 150ML 150ML was used for 13:28:07 injections. 13:29:32 The RCA was injected and visualized at various angles. OMNIPAQUE, 350 MG, 150ML 150ML used . 13:31:20 Catheter was removed 13:31:55 HR=78 bpm, CTQS=224/87 mmhg, SpO2=92.0 %, Resp=11 B/min, Pain=0, Mami=10, Turcios=2 A MPA-2 INFINITI CATHETER FR 4 was advanced over a wire. OMNIPAQUE, 350 MG, 150ML 150ML was use d for 13:32:16 injections. 13:33:59 The SVG-RCA was injected and visualized at various angles. OMNIPAQUE, 350 MG, 150ML 150ML u sed. 13:35:24 The SVG-OM was injected and visualized at various angles. OMNIPAQUE, 350 MG, 150ML 150ML us ed. 13:36:40 The SVG-DIAG was injected and visualized at various angles. OMNIPAQUE, 350 MG, 150ML 150ML used. 13:36:56 HR=74 bpm, XMNG=984/82 mmhg, SpO2=91.0 %, Resp=11 B/min, Pain=0, Mami=10, Turcios=2 13:37:58 Catheter was removed 13:38:37 A IM INFINITI CATHETER FR 4 was advanced over a wire. OMNIPAQUE, 350 MG, 150ML 150ML was us ed for injections. 13:39:38 The HSU-LAD was injected and visualized at various angles. OMNIPAQUE, 350 MG, 150ML 150ML used. 13:40:33 Catheter was removed A AL 1 INFINITI CATHETER FR 4 was advanced over a wire. OMNIPAQUE, 350 MG, 150ML 150ML was used for 13:41:32 injections. 13:41:55 HR=74 bpm, YDUT=310/83 mmhg, SpO2=93.0 %, Resp=15 B/min, Pain=0, Mami=10, Turcios=2 13:43:02 The previous wire was exchanged for a WIRE, HYDROSTEER 150CM STRAIGHT GLIDE 150CM. 13:46:56 HR=72 bpm, JNXT=775/81 mmhg, SpO2=94.0 %, Resp=14 B/min, Pain=0, Mami=10, Turcios=2 13:47:07 Wire removed 13:47:10 Catheter was removed 13:47:13 Case End Assessment: Final Case, HR=74 BPM, Rhythm=sinus, HHRN=735/81 mmhg, Chest Pain=0, Edema=None, Color=Normal, Skin = Warm, Dry Right Pulses: Wallace Ped=1, Femoral=3 13:47:18 Left Pulses: Wallace Ped=1, Femoral=3 Neurological: State=Alert, Ox3, ATKINS Respiration: Resp=15 B/min, PoL3=322 % 13:47:30 Catheter(s) removed without difficulty 13:48:38 Arterial Sheath removed; pressure applied to access site. 13:51:55 HR=72 bpm, PGGK=334/81 mmhg, SpO2=97.0 %, Resp=13 B/min, Pain=0, Mami=10, Turcios=2 13:56:54 HR=71 bpm, WDVO=468/83 mmhg, SpO2=96.0 %, Resp=20 B/min, Pain=0, Mami=10, Turcios=2 14:01:41 Venous Sheath removed; pressure applied to access site. 14:01:55 HR=71 bpm, RTSF=292/86 mmhg, SpO2=91.0 %, Resp=13 B/min, Pain=0, Mami=10, Turcios=2 14:06:58 HR=70 bpm, MRAQ=339/77 mmhg, SpO2=93.0 %, Resp=18 B/min, Pain=0, Mami=10, Turcios=2 14:08:32 Sterile dressing applied to site 14:08:34 Vitals capture stopped. 14:08:36 Patient moved to [facility] End Study - Contrast Media Used In Study Contrast Total Opened (mL) Total Used (mL) Total Wasted (mL) Omnipaque 110 110 0 End Study - Maximum Contrast Load Max Contrast Load (mL) 465.6 End Study - Radiation Exposure Fluoro Time (minutes) 11.2 End Study - Sheaths Sheaths Pulled By Sheath Hold Time (min) Nikki Alvarado 20 End Study - Patient Disposition Complications Transferred To Interventional Outcome No [facility] Holding No attempt made
--- NOTE | 2017-05-31 18:28 | MA ---
cc: GEORGES PENALOZA M.D., JEFFREY DATE 05/29/2017 INDICATIONS 1. Severe aortic stenosis. 2. History of bypass surgery. 3. Sedation PROCEDURE Right and left heart catheterization. CONSENT Full informed consent was obtained prior to the procedure. The risks of , bleeding, myocardial infarction, perforation, aspiration, foreseen and unforeseen complications were reviewed. The patient fully appeared to understand the risks. PROCEDURE DETAILS The patient was draped and prepped in the usual manner. The right femoral artery and vein were entered using a micropuncture technique with an ultrasound. Via the 7 Gabonese sheath a full right heart catheterization was carried out including saturations and cardiac outputs. Via the 4 Gabonese sheath the left and right coronary catheters were used to intubate the left and right coronaries. Pigtail catheter was used to intubate the left ventricle. Multiple angiographic views were carried out. A multipurpose catheter and IM catheter were used to intubate the vein grafts and the left internal mammary, respectively. At the end of the procedure, all catheters and sheaths were removed. Manual pressure was applied until good hemostasis was achieved. The patient returned to recovery room in stable condition. FINDINGS HEMODYNAMIC RESULTS The wedge pressure was 12/12 with a mean of 9 and mean pulmonary artery pressure was 32/9 with a mean of 19. The RV pressure was 31 with a right ventricular pressure of 2. The right atrial pressure of 3/2 with a mean of 0. The aortic pressure was 142/76 with a mean of 104. LEFT VENTRICULOGRAM Not done as the aortic valve was not crossed because of severe aortic stenosis. A mitral valve ring was also noted. CORONARIES The left main had an ostial 75% and a distal 99%. The LAD was totally occluded. The left circumflex artery was totally occluded. The right coronary artery was heavily calcified throughout its length and totally occluded in its mid section. VEIN GRAFTS The vein graft to the right coronary was a widely patent graft with excellent anastomosis to the distal right with excellent filling retrogradely. The vein graft to the obtuse marginal branch. This is a widely patent graft with excellent anastomosis to the OM1. This retrograde filled the circumflex and the OM2 and a very small OM3. Vein graft to the diagonal branch. This is a widely patent graft with excellent anastomosis to the small to medium sized diagonal branch. HSU catheter to the LAD. This was an excellent graft with excellent anastomosis to the LAD. Aortic valve: severe by echo; The heavily calcified aortic valve was not possible to cross despite using an AL -1 catheter with a straight Glidewire. CONCLUSION Severe aortic stenosis unable to cross the aortic valve. Severe confirmed by echo. Severe [place] coronary artery disease, with 100% occluded lad, lcx and RCA. Widely patent grafts x 4. PLAN Pt has severe Aortic stenosis and patent grafts. Consider TAVR versus aortic valve replacement. Discussed in detail with patient and . They will consider the options and let me know what they wish to do and where they wish to do it. We will review in office. Georges Penaloza MD, FRCP,[facility]/KK /2:00 PM /6:04 PM [place]
== END 2017-05-29 18:30 | disposition home or self-care (01) ==
LOC: HDOC 10:17 → HDIC 10:18 → HDOC 18:30
PROVIDERS: ATTEND Internal Medicine Cardiovascular Disease
DX: I35.0 Nonrheumatic aortic (valve) stenosis (principal); I25.10 Atherosclerotic heart disease of native coronary artery without angina pectoris; I25.82 Chronic total occlusion of coronary artery; I10 Essential (primary) hypertension; E78.5 Hyperlipidemia, unspecified; N28.9 Disorder of kidney and ureter, unspecified; R55 Syncope and collapse; F10.21 Alcohol dependence, in remission; Z95.1 Presence of aortocoronary bypass graft; Z86.711 Personal history of pulmonary embolism; Z79.1 Long term (current) use of non-steroidal anti-inflammatories (NSAID); Z79.899 Other long term (current) drug therapy
CPT/HCPCS: 80048; 82810; 85025; 85610; 85730; 93457; C1769; C1893; J1644; J2250; J3010; Q9967

== ENCOUNTER 2018-02-02 07:37 | Observation (INO) | payer MEDICARE ==
[2018-02-02] VITALS (10 sets, daily range): BP systolic 139–162; BP diastolic 76–93; PULSE 58–77; RESP 16–18; TEMP 97.8–98.8; O2SAT 97–100
[~2018-02-02] VITALS: Ht 182.9 cm; Wt 75.0 kg
[~2018-02-02 07:37] MED LIST changes: -AMLO2.5T PO; +AMLO5TAB2 PO; +BETA1TAB5 PO; +COQ-30CA2 PO; +ESSE250T PO; +EZET10 PO; +FINA5TAB2 PO; +GLUC500C5 PO; -LIPI40TA PO; +LIPI80TA PO; +LISI-515 PO; -LISI10TA3 PO; +OMEG100010 PO; +POTA595T PO; -PROS5TAB PO; +VITA100064 PO
[2018-02-02] MEDS ORDERED: ASPI-516 CHEW (07:55)
--- NOTE | 2018-02-02 08:07 | PD ---
HPI Chief Complaint: Syncope/Near-Syncope Time Seen by Provider: 08:02 Travel History International Travel<30 days: No Contact w/Intl Traveler<30days: No Traveled to known affect area: No History of Present Illness HPI 77-year-old male patient with history of hypertension, CAD status post CABG, vasovagal syncope, valve replacement, presents to the ER today brought in by EMS because he had a syncopal episode at home. However, patient states he did not completely lose consciousness. He states that he thinks he got up too quickly because he was supposed to go for a workout this morning and was in a cohn, went to try to weigh himself, and went down. He denies any chest pains, shortness of breath, or any other issues. He denies feeling unwell. He denies any significant injuries. However, he states he has been having some muscle cramping in the past day. Modifying Factors: None Associated Signs & Symptoms: Syncope Risk Factors: Cardiac history PFSH Past Medical History Arthritis: Yes (NECK) Asthma: No Atrial Fibrillation: Yes (PAROXYSMAL) Blood Disorders: No Heart Rhythm Problems: Yes (AFIB) Cancer: No Cardiovascular Problems: Yes (CAD, CABGX5) High Cholesterol: Yes Chest Pain: No Congestive Heart Failure: No COPD: No Cerebrovascular Accident: No Diabetes: No Diminished Hearing: No Endocrine: No Gastrointestinal Disorders: Yes (HX OF GI BLEED, HERNIA REPAIR ) GERD: No Glaucoma: No Genitourinary: Yes Headaches: No Hepatitis: No Hiatal Hernia: No Hypertension: Yes Immune Disorder: No Kidney Stones: No Medical other: Yes (HYPERCHOLESTEROLEMIA,ATROPHY MUSCLES IN UPPER ARM/SHOULDER, ) Musculoskeletal: Yes (WEAKNESS MICHELLE ARMS WEAKNESS. RT>LT. LOWER SPINE ? HERNIATED DISC) Neurologic: Yes (MULTIPLE FAINTING EPISODES) Psychiatric: No Reproductive: No Respiratory: No Integumentary: No Migraines: No Renal Failure: No Seizures: No Sleep Apnea: No Thyroid Disease: No Ulcer: No Influenza Vaccination: Yes Past Surgical History Abdominal Surgery: Yes (APPENDECTOMY 2006) AICD: No Appendectomy: Yes Arteriovenous Shunt: No Body Medical Devices: PLASTIC HEART VALVE. ? MONITORING DEVICE IMPLANTED UNDER LT COLLARBONE Cardiac Surgery: Yes ( CABG X5,VALVE REPLACED) Coronary Artery Bypass Graft: Yes (X 5; VALVE, 2006) Ear Surgery: No Endocrine Surgery: No Eye Surgery: No Genitourinary Surgery: No Gynecologic Surgery: No Insulin Pump: No Joint Replacement: No Oral Surgery: No Pacemaker: No Thoracic Surgery: No Other Surgery: Yes (MITRAL VALVE ANNULOPLASTY, CABG) Social History Alcohol Use: Yes (4 GLASSES OF WINE A DAY) Tobacco Use: No Substance Use: No Allergies-Medications (Allergen,Severity, Reaction): Coded Allergies: No Known Allergies (Verified Adverse Reaction, Unknown, 02/02/18) Reported Meds & Prescriptions Reported Meds & Active Scripts Active Reported Aspirin 81 Mg Chew 81 Mg CHEW DAILY Vision Vitamins (Beta-Carotene(A)-Vits C,E/Mins) 1 Each Tablet 1 Mg PO DAILY [place] 3 1000 mg ([place]-3 Fatty Acids) 1 Cap Cap 1,000 Mg PO DAILY Potassium Gluconate 595 Mg Tab 595 Mg PO DAILY Glucosamine (Glucosamine Sulfate) 500 Mg Cap 500 Mg PO DAILY Coq-10 (Coenzyme Q10 (Ubidecarenone)) 30 Mg Cap 100 Mg PO DAILY Vitamin D3 (Cholecalciferol) 1,000 Unit Tab 1,000 Units PO DAILY Magnesium 250 Mg Tab 250 Mg PO DAILY Finasteride 5 Mg Tab 5 Mg PO DAILY Do not crush. Zetia (Ezetimibe) 10 Mg Tab 10 Mg PO DAILY Lipitor (Atorvastatin Calcium) 80 Mg Tab 80 Mg PO HS Lisinopril 20 Mg Tab 20 Mg PO DAILY Amlodipine (Amlodipine Besylate) 5 Mg Tab 5 Mg PO DAILY Metoprolol Tartrate 50 Mg Tab 50 Mg PO DAILY Flomax (Tamsulosin HCl) 0.4 Mg Cap 0.4 Mg PO HS Tizanidine (Tizanidine HCl) 4 Mg Tab 4 Mg PO TID Aleve Arthritis (Naproxen Sodium) 220 Mg Tab 220 Mg PO BID Review of Systems Except as stated in HPI: all other systems reviewed are Neg Physical Exam Narrative GENERAL: Well-developed elderly male patient currently in mild distress. Awake , alert, oriented 3. SKIN: Focused skin assessment warm/dry. Notable midsternal scar well-healed. HEAD: Atraumatic. Normocephalic. EYES: Pupils equal and round. No scleral icterus. No injection or drainage. ENT: No nasal bleeding or discharge. Mucous membranes pink and moist. NECK: Trachea midline. No JVD. Supple. CARDIOVASCULAR: Regular rate and rhythm. No murmur appreciated. RESPIRATORY: No accessory muscle use. Clear to auscultation. Breath sounds equal bilaterally. GASTROINTESTINAL: Abdomen soft, non-tender, nondistended. Hepatic and splenic margins not palpable. MUSCULOSKELETAL: No obvious deformities. No clubbing. No cyanosis. No edema. NEUROLOGICAL: Awake and alert. No obvious cranial nerve deficits. Motor grossly within normal limits. Normal speech. PSYCHIATRIC: Appropriate mood and affect; insight and judgment normal. Data Data Last Documented VS Vital Signs Date Time Temp Pulse Resp B/P (MAP) Pulse Ox O2 Delivery O2 Flow Rate FiO2 02/02/18 10:00 58 16 140/79 (99) 100 Room Air 02/02/18 07:45 98.2 Orders Orders Electrocardiogram (02/02/18 08:03) Complete Blood Count With Diff (02/02/18 08:03) Comprehensive Metabolic Panel (02/02/18 08:03) Magnesium (Mg) (02/02/18 08:03) Ckmb (Isoenzyme) Profile (02/02/18 08:03) Troponin I (02/02/18 08:03) Act Partial Throm Time (Ptt) (02/02/18 08:03) Prothrombin Time / Inr (Pt) (02/02/18 08:03) Urinalysis - C+S If Indicated (02/02/18 08:03) Chest, Single Ap (02/02/18 08:03) Ct Brain W/O Iv Contrast(Rout) (02/02/18 08:03) Ecg Monitoring (02/02/18 08:03) Iv Access Insert/Monitor (02/02/18 08:03) Oximetry (02/02/18 08:03) Sodium Chloride 0.9% Flush (Ns Flush) (02/02/18 08:15) Alcohol (Ethanol) (02/02/18 08:03) CKMB (02/02/18 08:15) CKMB% (02/02/18 08:15) Diet Heart Healthy (02/02/18 Lunch) Ns (Bolus) Inj (02/02/18 12:30) Labs Laboratory Tests Test 02/02/18 08:15 02/02/18 09:49 White Blood Count 4.9 TH/MM3 Red Blood Count 4.20 MIL/MM3 Hemoglobin 13.5 GM/DL Hematocrit 39.3 % Mean Corpuscular Volume 93.6 FL Mean Corpuscular Hemoglobin 32.2 PG Mean Corpuscular Hemoglobin Concent 34.4 % Red Cell Distribution Width 14.2 % Platelet Count 146 TH/MM3 Mean Platelet Volume 8.5 FL Neutrophils (%) (Auto) 47.5 % Lymphocytes (%) (Auto) 41.7 % Monocytes (%) (Auto) 9.4 % Eosinophils (%) (Auto) 0.9 % Basophils (%) (Auto) 0.5 % Neutrophils # (Auto) 2.3 TH/MM3 Lymphocytes # (Auto) 2.1 TH/MM3 Monocytes # (Auto) 0.5 TH/MM3 Eosinophils # (Auto) 0.0 TH/MM3 Basophils # (Auto) 0.0 TH/MM3 CBC Comment DIFF FINAL Differential Comment Prothrombin Time 10.1 SEC Prothromb Time International Ratio 1.0 RATIO Activated Partial Thromboplast Time 25.0 SEC Blood Urea Nitrogen 20 MG/DL Creatinine 0.97 MG/DL Random Glucose 80 MG/DL Total Protein 7.8 GM/DL Albumin 3.8 GM/DL Calcium Level 9.2 MG/DL Magnesium Level 2.0 MG/DL Alkaline Phosphatase 66 U/L Aspartate Amino Transf (AST/SGOT) 63 U/L Alanine Aminotransferase (ALT/SGPT) 41 U/L Total Bilirubin 0.8 MG/DL Sodium Level 140 MEQ/L Potassium Level 3.9 MEQ/L Chloride Level 106 MEQ/L Carbon Dioxide Level 24.0 MEQ/L Anion Gap 10 MEQ/L Estimat Glomerular Filtration Rate 75 ML/MIN Total Creatine Kinase 639 U/L Creatine Kinase MB 5.9 NG/ML Creatine Kinase MB % 0.9 % Troponin I LESS THAN 0.02 NG/ML Ethyl Alcohol Level 90 MG/DL Urine Color YELLOW Urine Turbidity CLEAR Urine pH 8.0 Urine Specific [place] 1.012 Urine Protein TRACE mg/dL Urine Glucose (UA) NEG mg/dL Urine Ketones 10 mg/dL Urine Occult Blood MOD Urine Nitrite NEG Urine Bilirubin NEG Urine Urobilinogen LESS THAN 2.0 MG/DL Urine Leukocyte Esterase NEG Urine RBC /hpf Urine WBC LESS THAN 1 /hpf Urine Squamous Epithelial Cells <1 /hpf Microscopic Urinalysis Comment CULT NOT INDICATED MDM Medical Decision Making Medical Screen Exam Complete: Yes Emergency Medical Condition: Yes Medical Record Reviewed: Yes Interpretation(s) EKG shows narrow complex bradycardia at a rate of 58 bpm. No signs of acute ST elevations or depressions. I see pacer spikes of an atrial pacer but it is unclear whether this is catching. Repeat EKG shows sinus bradycardia without artifact seen. No acute ST elevations or depression seen. Laboratory Tests Test 02/02/18 08:15 02/02/18 09:49 Red Blood Count 4.20 MIL/MM3 (4.50-5.90) Platelet Count 146 TH/MM3 (150-450) Monocytes (%) (Auto) 9.4 % (0.0-8.0) Blood Urea Nitrogen 20 MG/DL (7-18) Aspartate Amino Transf (AST/SGOT) 63 U/L (15-37) Estimat Glomerular Filtration Rate 75 ML/MIN (>89) Total Creatine Kinase 639 U/L (39-308) Creatine Kinase MB 5.9 NG/ML (0.5-3.6) Troponin I LESS THAN 0.02 NG/ML Ethyl Alcohol Level 90 MG/DL (0-5) Urine Ketones 10 mg/dL (NEG) Urine Occult Blood MOD (NEG) Last [address] 02/02/18802 Signed Impressions: Service Date/Time: Friday, February 02, 2018 08:17 - CONCLUSION: 1. 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 MRI may be warranted. 2. No intraparenchymal hemorrhage. Jeffry Herrera MD Chest X-Ray 02/02/18802 Signed Impressions: Service Date/Time: Friday, February 02, 2018 08:29 - CONCLUSION: 1. No acute abnormality or significant interval change. Shahriar Drake MD Differential Diagnosis Syncope: Dysrhythmias versus vasovagal versus dehydration versus metabolic issues Narrative Course Vital signs are stable in the ER. EKG did not show significant dysrhythmias. There was an initial artifact seen but repeat EKG did not show the same artifact. Patient does not have a pacer. Lab work was fairly unremarkable. CT the brain was negative for any signs of acute intracranial processes. Chest x-ray did not show any signs of acute pulmonary processes. Case was discussed with Dr. Penaloza, patient's svp research and strategic analysis, who states that the patient can be observed in the ER and released to follow-up closely with him in the clinic. He has history of orthostatic hypotension and syncopal episodes in the past. He did suggest that we reduce his Norvasc to 2.5 mg. However, when I got the patient up and trying to walk, he became quite dizzy and did not feel like he could walk. At this point, IV fluids were given and my plan would be to admit the patient as an observation for IV fluids and reevaluation for orthostasis and syncopal episodes. Case was discussed with Dr. Hinojosa for admission. Diagnosis Primary Impression: Syncope Admitting Information Admitting Physician Requests: Rudolph Dias MD Feb 02, 2018 08:07
[2018-02-02] MEDS ORDERED: SODIUM CHLORIDE 0.9% FLUSH 10 ML FLUSH IVF PRN (08:15)
--- NOTE | 2018-02-02 08:27 | RADRPT ---
EXAM DATE/TIME: 02/02/2018 08:17 This report includes an Addendum and supersedes previous reports for this exam. [facility] COMPARISON: No previous studies available for comparison. INDICATIONS : Syncopal episode today. RADIATION DOSE: 38.73 CTDIvol (mGy) MEDICAL HISTORY : Hypertension. Cardiovascular disease SURGICAL HISTORY : CABG Appendectomy. ENCOUNTER: Initial ACUITY: 1 day PAIN SCALE: 0/10 LOCATION: cranial TECHNIQUE: Multiple contiguous axial images were obtained of the head. Using automated exposure control and adj ustment of the mA and/or kV according to patient size, radiation dose was kept as low as reasonably a chievable to obtain optimal diagnostic quality images. DICOM format image data is available electro nically for review and comparison. FINDINGS: CEREBRUM: Encephalomalacia right frontal, left temporal and right parietal lobes. The ventricles are normal for age. No evidence of midline shift, mass lesion, hemorrhage or acute infarction. No extra-axial flu id collections are seen. POSTERIOR FOSSA: The cerebellum and brainstem are intact. The 4th ventricle is midline. The cerebellopontine angle i s unremarkable. EXTRACRANIAL: The visualized portion of the orbits is intact. SKULL: The calvaria is intact. No evidence of skull fracture. CONCLUSION: 1. 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 MRI may be warranted. 2. No intraparenchymal hemorrhage. Jeffry Herrera MD on February 02, 2018 at 8:23 Board Certified Radiologist. This report was verified electronically. ADDENDUM: Prior study now available for comparison. Encephalomalacia bifrontal biparietal lobes are s table. The area of low-density in the left temporal lobe appears new on current study. MRI recommende d. COMPARISON: CT BRAIN W/O CONTRAST, November 28, 2011, 6:19. Jeffry Herrera MD on February 04, 2018 at 13:34 Board Certified Radiologist. This report was verified electronically.
[2018-02-02 08:50] LABS: AUTOMATED NEUTROPHIL # 2.3 TH/MM3 (1.8-7.7); BASOPHIL % 0.5 % (0.0-2.0); EOSINOPHIL % 0.9 % (0.0-4.0); HEMATOCRIT 39.3 % (39.0-51.0); HEMOGLOBIN 13.5 GM/DL (13.0-17.0); LYMPH % 41.7 % (9.0-44.0); LYMPHOCYTE # 2.1 TH/MM3 (1.0-4.8); MEAN CELL VOLUME 93.6 FL (80.0-100.0); MEAN CORPUSCULAR HEMOGLOBIN 32.2 PG (27.0-34.0); MEAN CORPUSCULAR HGB CONC 34.4 % (32.0-36.0); MEAN PLATELET VOLUME 8.5 FL (7.0-11.0); MONO % 9.4 % (0.0-8.0); MONOCYTE # 0.5 TH/MM3 (0-0.9); NEUT % 47.5 % (16.0-70.0); PLATELET COUNT 146 TH/MM3 (150-450); RED CELL DISTRIBUTION WIDTH 14.2 % (11.6-17.2); WHITE BLOOD COUNT 4.9 TH/MM3 (4.0-11.0)
[2018-02-02 08:59] LABS: PROTHROMBIN TIME - PATIENT 10.1 SEC (9.8-11.6)
--- NOTE | 2018-02-02 09:07 | RADRPT ---
EXAM DATE/TIME: 02/02/2018 08:29 [facility] COMPARISON: CHEST SINGLE AP, April 30, 2017, 13:14. INDICATIONS : Shortness of breath. MEDICAL HISTORY : Hypertension. Cardiovascular disease. SURGICAL HISTORY : CABG. ENCOUNTER: Initial ACUITY: 1 day PAIN SCORE: 0/10 LOCATION: Bilateral chest FINDINGS: Stable postsurgical features of prior median sternotomy and cardiac valve replacement. No significant new focal pleural or parenchymal opacities. Cardiomediastinal contours are stable. Remainder of the exam is unchanged. CONCLUSION: 1. No acute abnormality or significant interval change. Shahriar Drake MD on February 02, 2018 at 9:05 Board Certified Radiologist. This report was verified electronically.
[2018-02-02 10:04] LABS: ALBUMIN 3.8 GM/DL (3.4-5.0); ALT (GPT) 41 U/L (12-78); AST (GOT) 63 U/L (15-37); BLOOD UREA NITROGEN 20 MG/DL (7-18); CALCIUM 9.2 MG/DL (8.5-10.1); CHLORIDE 106 MEQ/L (98-107); CREATININE 0.97 MG/DL (0.60-1.30); GLOMERULAR FILTRATION RATE 75 ML/MIN (>89); GLUCOSE,RANDOM 80 MG/DL (74-106); SODIUM (NA) 140 MEQ/L (136-145)
[2018-02-02 10:04] LABS: BILIRUBIN, URINE NEG (NEG); BLOOD, URINE MOD (NEG); GLUCOSE,URINE NEG (NEG); KETONE, URINE 10 mg/dL (NEG); NITRITE,URINE NEG (NEG); SQUAMOUS EPITHELIAL CELL URINE <1 /hpf (0-5); URINE COLOR YELLOW (YELLW/STRAW); URINE LEUKOCYTE ESTERASE NEG (NEG)
[2018-02-02 10:09] LABS: ALKALINE PHOSPHATASE 66 U/L (45-117); TOTAL BILIRUBIN ADULT 0.8 MG/DL (0.2-1.0); TOTAL PROTEIN 7.8 GM/DL (6.4-8.2); TROPONIN I LESS THAN 0.02 NG/ML (0.02-0.05)
[2018-02-02] MEDS ORDERED: SODIUM CHLORID 0.9% 500 ML INJ 500 ML IV ONE (12:30)
[2018-02-02] MEDS ORDERED: FLUMAZENIL 0.5 MG/5 ML VIAL IV PUSH PRN (13:45)
[2018-02-02] MEDS ORDERED: LORazepam 1 MG TAB PO PRN (13:45)
[2018-02-02] MEDS ORDERED: LORazepam 2 MG/ML VIAL IV PUSH PRN ×4 (13:45)
[2018-02-02] MEDS ORDERED: LORazepam 2 MG TAB PO PRN (13:45)
--- NOTE | 2018-02-02 13:53 | HHI.HP ---
[facility] Primary [facility] Physician Suman Bocanegra DO Admission Diagnosis Syncope Diagnoses: (1) Syncope Diagnosis: Principal Chief Complaint: fall Travel History International Travel<30 Days: No Contact w/Intl Traveler <30 Da: No Traveled to Known Affected Are: No History of Present Illness patient is a 77 y/o male with history of CAD- s/p CABG, hypertension and dyslipidemia with history of alcohol abuse was brought to ER after he fell at home earlier.he says that he went to bathroom today and then he felt unsteady and fell. he doesn't think that he passed out. he denies any prodromal symptoms before the fall including chest pain, sob, dizziness or nausea. he was evaluated in ED and was about to be discharged home but then he was unsteady on his feet for which he was advised to stay in the hospital. he admits to heavily drinking alcohol daily- the last drink was last night. Review of Systems Constitutional: DENIES: Fever, Weight loss, Chills, Night Sweats Eyes: DENIES: Blurred vision, Diplopia, Vision loss, Double Vision Ears, nose, mouth, throat: DENIES: Tinnitus, Vertigo, Throat pain, Epistaxis Respiratory: DENIES: Apneas, Cough, Snoring, Wheezing, Hemoptysis, Sputum production, Shortness of breath Cardiovascular: DENIES: Chest pain, Palpitations, Syncope, Dyspnea on Exertion , PND, Lower Extremity Edema, Orthopnea, Claudication Gastrointestinal: DENIES: Abdominal pain, Black stools, Bloody stools, Constipation, Diarrhea, Nausea, Vomiting, Difficulty Swallowing, Anorexia Genitourinary: DENIES: Urinary frequency, Urgency, Hematuria, Dysuria Musculoskeletal: DENIES: Joint pain, Muscle aches, Stiffness, Joint Swelling Integumentary: DENIES: Rash Neurologic: COMPLAINS OF: Poor Balance, DENIES: Abnormal gait, Headache, Localized weakness, Paresthesias, Seizures, Speech Problems, Tremor Psychiatric: DENIES: Anxiety, Confusion, Mood changes, Depression, Hallucinations, Agitation, Suicidal Ideation, Homicidal Ideation, Delusions Past Family Social History Past Medical History CAD/ hypertension/ dyslipidemia. Past Surgical History mitral valve annuloplasty/ CABG. Reported Medications Aspirin 81 Mg Chew 81 Mg CHEW DAILY Vision Vitamins (Beta-Carotene(A)-Vits C,E/Mins) 1 Each Tablet 1 Mg PO DAILY [place] 3 1000 mg ([place]-3 Fatty Acids) 1 Cap Cap 1,000 Mg PO DAILY Potassium Gluconate 595 Mg Tab 595 Mg PO DAILY Glucosamine (Glucosamine Sulfate) 500 Mg Cap 500 Mg PO DAILY Coq-10 (Coenzyme Q10 (Ubidecarenone)) 30 Mg Cap 100 Mg PO DAILY Vitamin D3 (Cholecalciferol) 1,000 Unit Tab 1,000 Units PO DAILY Magnesium 250 Mg Tab 250 Mg PO DAILY Finasteride 5 Mg Tab 5 Mg PO DAILY Do not crush. Zetia (Ezetimibe) 10 Mg Tab 10 Mg PO DAILY Lipitor (Atorvastatin Calcium) 80 Mg Tab 80 Mg PO HS Lisinopril 20 Mg Tab 20 Mg PO DAILY Amlodipine (Amlodipine Besylate) 5 Mg Tab 5 Mg PO DAILY Metoprolol Tartrate 50 Mg Tab 50 Mg PO DAILY Flomax (Tamsulosin HCl) 0.4 Mg Cap 0.4 Mg PO HS Tizanidine (Tizanidine HCl) 4 Mg Tab 4 Mg PO TID Aleve Arthritis (Naproxen Sodium) 220 Mg Tab 220 Mg PO BID Allergies: Coded Allergies: No Known Allergies (Verified Adverse Reaction, Unknown, 02/02/18) Active Ordered Medications Inpatient Medications EZETIMIBE (Zetia) 10 mg DAILY PO ; Start 02/03/18 at 09:00; Status UNV Flumazenil (Romazicon Inj) 0.2 mg Q1M PRN IV PUSH SEE LABEL COMMENTS; Start at 13:45; Status UNV Lorazepam (Ativan Inj) 1 mg Q4H PRN IV PUSH CIWA 8 - 10; Start 02/02/18 at 13: 45; Status UNV Lorazepam (Ativan) 2 mg Q2H PRN PO CIWA 11-14; Start 02/02/18 at 13:45; Status UNV Sodium Chloride 500 ml @ 500 mls/hr BOLUS ONCE IV ; Start 02/02/18 at 12:30; Stop 02/02/18 at 13:29; Status DC Sodium Chloride (NS Flush) 2 ml UNSCH PRN IVF FLUSH AFTER USING IV ACCESS; Start 4/17/18 at 08:15 Social History drinks heavily- as a daily basis. Physical Exam Vital Signs Vital Signs Date Time Temp Pulse Resp B/P (MAP) Pulse Ox O2 Delivery O2 Flow Rate FiO2 02/02/18 10:00 58 16 140/79 (99) 100 Room Air 02/02/18 08:38 16 98 Room Air 02/02/18 07:45 98.2 68 16 159/76 (103) 97 Physical Exam GENERAL: This is a well-nourished, well-developed patient, in no apparent distress. SKIN: No rashes, ecchymoses or lesions. Cool and dry. HEAD: Atraumatic. Normocephalic. No temporal or scalp tenderness. EYES: Pupils equal round and reactive. Extraocular motions intact. No scleral icterus. No injection or drainage. ENT: Nose without bleeding, purulent drainage or septal hematoma. Throat without erythema, tonsillar hypertrophy or exudate. Uvula midline. Airway patent. NECK: Trachea midline. No JVD or lymphadenopathy. Supple, nontender, no meningeal signs. CARDIOVASCULAR: Regular rate and rhythm without murmurs, gallops, or rubs. RESPIRATORY: Clear to auscultation. Breath sounds equal bilaterally. No wheezes , rales, or rhonchi. GASTROINTESTINAL: Abdomen soft, non-tender, nondistended. No hepato-splenomegaly , or palpable masses. No guarding. MUSCULOSKELETAL: Extremities without clubbing, cyanosis, or edema. No joint tenderness, effusion, or edema noted. No calf tenderness. Negative Homans sign bilaterally. NEUROLOGICAL: Awake and alert. Cranial nerves II through XII intact. Motor and sensory grossly within normal limits. Five out of 5 muscle strength in all muscle groups. Normal speech. Laboratory Laboratory Tests Test 02/02/18 08:15 02/02/18 09:49 White Blood Count 4.9 Red Blood Count 4.20 Hemoglobin 13.5 Hematocrit 39.3 Mean Corpuscular Volume 93.6 Mean Corpuscular Hemoglobin 32.2 Mean Corpuscular Hemoglobin Concent 34.4 Red Cell Distribution Width 14.2 Platelet Count 146 Mean Platelet Volume 8.5 Neutrophils (%) (Auto) 47.5 Lymphocytes (%) (Auto) 41.7 Monocytes (%) (Auto) 9.4 Eosinophils (%) (Auto) 0.9 Basophils (%) (Auto) 0.5 Neutrophils # (Auto) 2.3 Lymphocytes # (Auto) 2.1 Monocytes # (Auto) 0.5 Eosinophils # (Auto) 0.0 Basophils # (Auto) 0.0 CBC Comment DIFF FINAL Differential Comment Prothrombin Time 10.1 Prothromb Time International Ratio 1.0 Activated Partial Thromboplast Time 25.0 Blood Urea Nitrogen 20 Creatinine 0.97 Random Glucose 80 Total Protein 7.8 Albumin 3.8 Calcium Level 9.2 Magnesium Level 2.0 Alkaline Phosphatase 66 Aspartate Amino Transf (AST/SGOT) 63 Alanine Aminotransferase (ALT/SGPT) 41 Total Bilirubin 0.8 Sodium Level 140 Potassium Level 3.9 Chloride Level 106 Carbon Dioxide Level 24.0 Anion Gap 10 Estimat Glomerular Filtration Rate 75 Total Creatine Kinase 639 Creatine Kinase MB 5.9 Creatine Kinase MB % 0.9 Troponin I LESS THAN 0.02 Ethyl Alcohol Level 90 Urine Color YELLOW Urine Turbidity CLEAR Urine pH 8.0 Urine Specific [place] 1.012 Urine Protein TRACE Urine Glucose (UA) NEG Urine Ketones 10 Urine Occult Blood MOD Urine Nitrite NEG Urine Bilirubin NEG Urine Urobilinogen LESS THAN 2.0 Urine Leukocyte Esterase NEG Urine RBC Urine WBC LESS THAN 1 Urine Squamous Epithelial Cells <1 Microscopic Urinalysis Comment CULT NOT INDICATED Result Diagram: 02/02/1881402/02/18814 Imaging Last Impressions Head CT 02/02/18802 Signed Impressions: Service Date/Time: Friday, February 02, 2018 08:17 - CONCLUSION: 1. 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 MRI may be warranted. 2. No intraparenchymal hemorrhage. Jeffry Herrera MD Chest X-Ray 02/02/18802 Signed Impressions: Service Date/Time: Friday, February 02, 2018 08:29 - CONCLUSION: 1. No acute abnormality or significant interval change. Shahriar Drake MD EKG; sinus rhythm with no acute ST-T changes. Caprini VTE Risk Assessment Caprini VTE Risk Assessment: Mod/High Risk (score >= 2) Caprini Risk Assessment Model Point Value = 1 Point Value = 2 Point Value = 3 Point Value = 5 Age 41-60 Minor surgery BMI > 25 kg/m2 Swollen legs Varicose veins or History of unexplained or recurrent spontaneous Oral contraceptives or hormone replacement Sepsis (< 1 month) Serious lung disease, including pneumonia (< 1 month) Abnormal pulmonary function Acute myocardial infarction Congestive heart failure (< 1 month) History of inflammatory bowel disease Medical patient at bed rest Age 61-74 Arthroscopic surgery Major open surgery (> 45 min) Laparoscopic surgery (> 45 min) Malignancy Confined to bed (> 72 hours) Immobilizing plaster cast Central venous access Age >= 75 History of VTE Family history of VTE Factor V Leiden Prothrombin [id number] Lupus anticoagulant Anticardiolipin antibodies Elevated serum homocysteine Heparin-induced thrombocytopenia Other congenital or acquired thrombophilia Stroke (< 1 month) Elective arthroplasty Hip, pelvis, or leg fracture Acute spinal cord injury (< 1 month) Prophylaxis Regimen Total Risk Factor Score Risk Level Prophylaxis Regimen 0-1 Low Early ambulation 2 Moderate Order ONE of the following: *Sequential Compression Device (SCD) *Heparin 5000 units SQ BID 3-4 Higher Order ONE of the following medications: *Heparin 5000 units SQ TID *Enoxaparin/Lovenox 40 mg SQ daily (WT < 150 kg, CrCl > 30 mL/min) *Enoxaparin/Lovenox 30 mg SQ daily (WT < 150 kg, CrCl > 10-29 mL/min) *Enoxaparin/Lovenox 30 mg SQ BID (WT < 150 kg, CrCl > 30 mL/min) AND/OR *Sequential Compression Device (SCD) 5 or more Highest Order ONE of the following medications: *Heparin 5000 units SQ TID (Preferred with Epidurals) *Enoxaparin/Lovenox 40 mg SQ daily (WT < 150 kg, CrCl > 30 mL/min) *Enoxaparin/Lovenox 30 mg SQ daily (WT < 150 kg, CrCl > 10-29 mL/min) *Enoxaparin/Lovenox 30 mg SQ BID (WT < 150 kg, CrCl > 30 mL/min) AND *Sequential Compression Device (SCD) Assessment and Plan Assessment and Plan A/P - near-syncope/ fall with history of alcohol abuse monitor on telemetry- will consult PT. check for orthostatic hypotension. start on CIWA protocol/ thiamine and multivitamin- counselled extensively on drinking cessation. -CAD- s/p CABG; continue aspirin, BB and statin -hypertension; resume home meds- -DVT prophylaxis with SCD's Discussed Condition With ER physician, the patient and his family. Wendy Wylie MD Feb 02, 2018 13:53
[2018-02-02] MEDS ORDERED: SODIUM CHLOR 0.9% 1000 ML INJ 1,000 ML IV ONE (14:00)
--- NOTE | 2018-02-02 17:49 | RADRPT ---
EXAM DATE/TIME: 02/02/2018 17:23 [facility] COMPARISON: No previous studies available for comparison. INDICATIONS : Right knee pain after falling today. MEDICAL HISTORY : Hypertension. Cardiovascular disease. SURGICAL HISTORY : CABG. Appendectomy. ENCOUNTER: Initial ACUITY: 1 day PAIN SCORE: 4/10 LOCATION: Right anterior knee. FINDINGS: Significant arthropathy is identified involving the medial joint compartment. There is marked joint s pace narrowing with [id number] apposition and subchondral sclerosis. Mild patellofemoral degenerative disease is noted. Bony structures are intact without evidence of acute fracture. Increased density in the suprapatellar bursa suggesting presence of a small effusion. CONCLUSION: 1. Moderate to severe medial compartment arthropathy 2. Small joint effusion 3. No acute bony abnormality. Walter Islas MD on February 02, 2018 at 17:45 Board Certified Radiologist. This report was verified electronically.
[2018-02-02] MEDS ORDERED: TAMSULOSIN HCL 0.4 MG CAP PO SCH (21:00)
[2018-02-03 00:07] VITALS: BP 141/77; PULSE 68; RESP 18; TEMP 98.1; O2SAT 97
[2018-02-03 03:49] VITALS: BP 154/83; PULSE 68; RESP 16; TEMP 98; O2SAT 97
[2018-02-03 04:07] VITALS: PULSE 64
[2018-02-03 07:55] VITALS: PULSE 65
[2018-02-03] MEDS ORDERED: THIA100 PO (08:04)
--- NOTE | 2018-02-03 08:04 | HHI.DCPOC ---
Discharge Care Plan Diagnosis: (1) Syncope (2) Alcohol use Goals to Promote Your Health * To prevent worsening of your condition and complications * To maintain your health at the optimal level Directions to Meet Your Goals Take your medications as prescribed Follow your dietary instruction Follow activity as directed Keep your appointments as scheduled Take your immunizations and boosters as scheduled If your symptoms worsen call your PCP, if no PCP go to Urgent Care Center or Emergency Room Smoking is Dangerous to Your Health. Avoid second hand smoke Call the 24-hour hour crisis hotline for domestic abuse at Tari Hastings PA-C Feb 03, 2018 08:04
[2018-02-03] MEDS ORDERED: WALKER WHEELS/F1 MIS (08:06)
[2018-02-03 08:17] VITALS: BP_SYST 152; BP_SYST 154; BP_SYST 156; BP_DIAS 79; BP_DIAS 89; BP_DIAS 90; PULSE 65; RESP 20; TEMP 98.6; O2SAT 95
[2018-02-03] MEDS ORDERED: LACTULOSE SYRUP 20 GM/30 ML CUP PO PRN (09:00)
[2018-02-03] MEDS ORDERED: FINASTERIDE 5 MG TAB PO SCH (09:00)
[2018-02-03] MEDS ORDERED: MULTIVITAMIN TAB PO SCH (09:00)
[2018-02-03] MEDS ORDERED: amLODIPine BESYLATE 5 MG TAB PO SCH (09:00)
[2018-02-03] MEDS ORDERED: DOCUSATE SODIUM 50 MG/SENNA 8.6 MG TAB PO SCH (09:00)
[2018-02-03] MEDS ORDERED: LISINOPRIL 20 MG TAB PO SCH (09:00)
[2018-02-03] MEDS ORDERED: ASPIRIN 81 MG CHEW TAB CHEW SCH (09:00)
[2018-02-03] MEDS ORDERED: EZETIMIBE 10 MG TAB PO SCH (09:00)
[2018-02-03] MEDS ORDERED: BISACODYL 10 MG SUPP RECTAL PRN (09:00)
[2018-02-03] MEDS ORDERED: SENNOSIDES 8.6 MG TAB PO PRN (09:00)
[2018-02-03] MEDS ORDERED: PSYLLIUM HUSK SF 3.4 GM in 5.8 GM PKT PO SCH (09:00)
[2018-02-03] MEDS ORDERED: MAGNESIUM HYDROXIDE SUSP 30 ML CUP PO PRN (09:00)
[2018-02-03] MEDS ORDERED: METOPROLOL TARTRATE 50 MG TAB PO SCH (09:00)
[2018-02-03] MEDS ORDERED: THIAMINE HCL 100 MG TAB PO SCH (09:00)
[2018-02-03 11:43] VITALS: BP_SYST 117; BP_SYST 123; BP_DIAS 62; BP_DIAS 63; BP_DIAS 78; PULSE 73; RESP 20; TEMP 97.9; O2SAT 100
--- NOTE | 2018-02-03 11:56 | HHI.PR ---
Subjective Remarks in no acute distress. overall doing fine. no new complaints. Objective Vitals Vital Signs Date Time Temp Pulse Resp B/P (MAP) Pulse Ox O2 Delivery O2 Flow Rate FiO2 02/03/18 11:43 97.9 73 20 117/63 (81) 100 123/78 (93) 117/62 (80) 02/03/18 08:17 98.6 65 20 156/79 (104) 95 154/89 (110) 152/90 (110) 02/03/18 07:55 65 02/03/18 04:07 64 02/03/18 03:49 98.0 68 16 154/83 (106) 97 02/03/18 00:07 98.1 68 18 141/77 (98) 97 02/02/18 20:57 97.8 76 16 160/76 (104) 02/02/18 20:00 63 02/02/18 20:00 65 02/02/18 18:32 77 02/02/18 16:20 98.8 67 18 153/78 (103) 98 147/80 (102) 156/93 (114) 02/02/18 16:09 02/02/18 15:00 66 18 139/77 (97) 97 Room Air 02/02/18 14:00 60 16 162/81 (108) 99 Room Air 02/02/18 12:00 58 16 151/76 (101) 98 Room Air I/O 02/02/18 02/02/18 02/02/18 02/03/18 02/03/18 02/03/18 07:00 15:00 23:00 07:00 15:00 23:00 Output Total 400 ml Balance -400 ml Output Urine Total 400 ml # Voids 2 Result Diagram: 02/02/1815 02/02/1815 Imaging Last Impressions Head CT 02/02/18802 Signed Impressions: Service Date/Time: Friday, February 02, 2018 08:17 - CONCLUSION: 1. 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 MRI may be warranted. 2. No intraparenchymal hemorrhage. Jeffry Herrera MD Chest X-Ray 02/02/18802 Signed Impressions: Service Date/Time: Friday, February 02, 2018 08:29 - CONCLUSION: 1. No acute abnormality or significant interval change. Shahriar Drake MD Knee X-Ray 02/02/18 0000 Signed Impressions: Service Date/Time: Friday, February 02, 2018 17:23 - CONCLUSION: 1. Moderate to severe medial compartment arthropathy 2. Small joint effusion 3. No acute bony abnormality. Walter Islas MD Objective Remarks GENERAL: This is a well-nourished, well-developed patient, in no apparent distress. CARDIOVASCULAR: Regular rate and regular rhythm without murmurs, gallops, or rubs. RESPIRATORY: Clear to auscultation. Breath sounds equal bilaterally. No wheezes , rales, or rhonchi. GASTROINTESTINAL: Abdomen soft, non-tender, nondistended. Normal, active bowel sounds MUSCULOSKELETAL: Extremities without clubbing, cyanosis, or edema. NEURO: Alert & Oriented x4 to person, place, time, situation. Moves all ext x4 Medications and IVs Inpatient Medications Amlodipine Besylate (Norvasc) 5 mg DAILY PO Last administered on 02/03/18at 08: 38; Start 02/03/18 at 09:00 Aspirin (Aspirin Chew) 81 mg DAILY CHEW Last administered on 02/03/18at 08:38; Start 02/03/18 at 09:00 Bisacodyl (Dulcolax Supp) 10 mg DAILY PRN RECTAL SEVERE CONSITIPATION; Start at 09:00 EZETIMIBE (Zetia) 10 mg DAILY PO Last administered on 02/03/18at 08:38; Start at 09:00 Finasteride (Proscar) 5 mg DAILY PO Last administered on 02/03/18at 08:37; Start 02/03/18 at 09:00 Flumazenil (Romazicon Inj) 0.2 mg Q1M PRN IV PUSH SEE LABEL COMMENTS; Start at 13:45 Lactulose (Lactulose Liq) 30 ml DAILY PRN PO SEVERE CONSITIPATION; Start at 09:00 Lisinopril (Prinivil) 20 mg DAILY PO Last administered on 02/03/18at 08:38; Start 02/03/18 at 09:00 Lorazepam (Ativan Inj) 2 mg Q15M PRN IV PUSH CIWA > 20; Start 02/02/18 at 13:45 Lorazepam (Ativan) 2 mg Q2H PRN PO CIWA 11-14; Start 02/02/18 at 13:45 Magnesium Hydroxide (Milk Of Magngaurav Liq) 30 ml Q12H PRN PO Mild constipation ; Start 02/03/18 at 09:00 Metoprolol Tartrate (Lopressor) 50 mg DAILY PO Last administered on 02/03/18 08:38; Start 02/03/18 at 09:00 Multivitamins (Theragran) 1 tab DAILY PO Last administered on 02/03/18 08:38; Start 02/03/18 at 09:00 Psyllium Husk (Metamucil Fiber Sf Pkt) 1 pkt DAILY PO Last administered on 02/03at 10:09; Start 02/03/18 at 09:00 Senna/Docusate Sodium (Monalisa-Colace) 1 tab BID PO Last administered on 10:09; Start 02/03/18 at 09:00 Sennosides (Senokot) 17.2 mg Q12H PRN PO Moderate constipation; Start 02/03/18 at 09:00 Sodium Chloride 1,000 ml @ 75 mls/hr [id number] ONCE IV Last administered on 02/02at 15:20; Start 02/02/18 at 14:00; Stop 02/03/18 at 03:19; Status DC Sodium Chloride (NS Flush) 2 ml UNSCH PRN IVF FLUSH AFTER USING IV ACCESS Last administered on 02/03/18at 08:37; Start 02/02/18 at 08:15 Tamsulosin HCl (Flomax) 0.4 mg HS PO Last administered on 02/02/18at 20:55; Start 02/02/18 at 21:00 Thiamine HCl (Vitamin B1) 100 mg DAILY PO Last administered on 02/03/18 08:38 ; Start 02/03/18 at 09:00 Tizanidine HCl (Zanaflex) 4 mg TID PO Last administered on 02/03/18 08:38; Start 02/02/18 at 18:00 A/P Problem List: (1) Syncope ICD Code: R55 - Syncope and collapse Status: Acute Assessment and Plan - near-syncope/ fall with history of alcohol abuse no orthostatic hypotension- sinus rhythm on telemetry- CT head with no acute abnormality ( d/w today). counselled on drinking cessation. -CAD- s/p CABG; continue aspirin, BB and statin -hypertension; resumed home meds- -DVT prophylaxis with SCD's Discharge Planning dc home with outpatient PT. f/u;pcp. see med list. d/w the patient and . Wendy Wylie MD Feb 03, 2018 11:56
--- NOTE | 2018-02-03 23:17 | EKG ---
Date Performed: 02/02/2018 Time Performed: 11:18:24 PTAGE: 77 years EKG: SINUS BRADYCARDIA MODERATE INTRAVENTRICULAR CONDUCTION DELAY NONSPECIFIC T-WAVE ABNORMALITY BORDERLINE ECG PREVIOUS TRACING : 04/30/2017 12.28 Since the previous tracing, no significant change noted DOCTOR: Pritesh Webb Interpretating Date/Time 02/03/2018 23:15:38
--- NOTE | 2018-02-03 23:23 | EKG ---
Date Performed: 02/02/2018 Time Performed: 07:59:22 PTAGE: 77 years EKG: SINUS BRADYCARDIA WITH SINUS ARRHYTHMIA MODERATE INTRAVENTRICULAR CONDUCTION DELAY NONSPECI FIC ST & T-WAVE ABNORMALITY BORDERLINE ECG Since the PREVIOUS TRACING , no significant change noted DOCTOR: Pritesh Webb Interpretating Date/Time 02/03/2018 23:22:41
== END 2018-02-03 18:43 | disposition home or self-care (01) ==
LOC: NEPE 07:37 → NEDA 12:32 → NEDH 12:42 → NEDA 12:43 → NEPHCDU 16:00
PROVIDERS: ADMIT Internal Medicine; ATTEND Internal Medicine
DX: R55 Syncope and collapse (principal); R06.02 Shortness of breath; M25.461 Effusion, right knee; M25.561 Pain in right knee; I25.10 Atherosclerotic heart disease of native coronary artery without angina pectoris; I10 Essential (primary) hypertension; E78.5 Hyperlipidemia, unspecified; G93.89 Other specified disorders of brain; R00.1 Bradycardia, unspecified; I49.9 Cardiac arrhythmia, unspecified; Z95.1 Presence of aortocoronary bypass graft; Z79.82 Long term (current) use of aspirin; Z79.899 Other long term (current) drug therapy
CPT/HCPCS: 70450; 71045; 73564; 80053; 80307; 81001; 82550; 82552; 83735; 84484; 85025; 85610; 85730; 93005; 96360; 96361; 97162; 99285; G0378; G8987; G8988; J7030; J7040